=== PATIENT | female | born 1975 | race Caucasian/White ===

== ENCOUNTER 2018-03-07 10:11 | Emergency (ER) | payer SELFPAY ==
[2018-03-07 10:52] VITALS: BP 131/83
== END 2018-03-07 13:05 | disposition left against medical advice (07) ==
LOC: ED 10:11
DX: F41.0 Panic disorder [episodic paroxysmal anxiety] (principal); Z53.21 Procedure and treatment not carried out due to patient leaving prior to being seen by health care provider